=== PATIENT | female | born 1985 | race Caucasian/White ===

== ENCOUNTER → 2017-05-12 | Outpatient (CLI) | payer BC ==
--- NOTE | 2017-05-12 17:38 | US ---
EXAMINATION TYPE: US thyroid st tissue head/neck DATE OF EXAM: 05/12/2017 COMPARISON: 06/04/2016 CLINICAL HISTORY: E04.9 GOITER. GLAND SIZE: Right Lobe: 3.7 x 1.1 x 1.7 cm Overall Parenchyma: homogenous Left Lobe: 3.5 x 1.2 x 1.5 cm Overall Parenchyma: homogeneous Isthmus Thickness: 0.1 cm NODULES RIGHT: # of nodules measured on right: 0 LEFT: # of nodules measured on left: 1 1. 0.5 X 0.3 x 0.3 cm isoechoic mixed nodule at the lower pole with poorly defined margins. This n odule is wide as is tall and shows intranodular vascularity. Prior size: 0.6 x 0.3 x 0.3 cm ISTHMUS: # of nodules measured in the isthmus: 0 Bilateral neck scanned, no evidence of lymphadenopathy. IMPRESSION: No dominant thyroid mass. Small nodule in the left thyroid lobe without adverse change compared to ol d exam. I have a low suspicion of malignancy.
== END | disposition home or self-care (01) ==
LOC: RADUSWWP 16:52
PROVIDERS: ATTEND Internal Medicine
DX: E04.1 Nontoxic single thyroid nodule (principal)
CPT/HCPCS: 76536

== ENCOUNTER 2018-01-18 10:50 | Outpatient (CLI) | payer BC | END 2018-01-18 11:00 | disposition home or self-care (01) | LOC: PTMAIN 10:50 | PROVIDERS: ATTEND Otolaryngology | DX: J37.0 Chronic laryngitis (principal) | CPT/HCPCS: 31579 ==

== ENCOUNTER → 2018-03-25 | Outpatient (CLI) | payer BC ==
--- NOTE | 2018-03-25 13:39 | US ---
EXAMINATION TYPE: US thyroid st tissue head/neck DATE OF EXAM: 03/25/2018 COMPARISON: 05/12/2017 CLINICAL HISTORY: E04.9 NON TOXIC GOITER. GLAND SIZE: Right Lobe: 4.2 x 1.9 x 1.5 cm Overall Parenchyma: homogenous Left Lobe: 4.0 x 1.7 x 1.5 cm Overall Parenchyma: homogeneous Isthmus Thickness: 0.1 cm NODULES RIGHT: # of nodules measured on right: 1 1. 0.6 X 0.4 x 0.4 cm echogenic mixed nodule at the lower pole with well-defined margins; . This n odule shows no intranodular vascularity. Prior size: 0.5 x 0.3 x 0.3 cm LEFT: # of nodules measured on left: 0 ISTHMUS: # of nodules measured in the isthmus: 0 Bilateral neck scanned, no evidence of lymphadenopathy. IMPRESSION: 1. No 1 cm or larger nodules.
== END | disposition home or self-care (01) ==
LOC: RADUSWWP 12:54
PROVIDERS: ATTEND Internal Medicine
DX: E04.1 Nontoxic single thyroid nodule (principal)
CPT/HCPCS: 76536

== ENCOUNTER 2019-02-04 17:43 | Outpatient (CLI) | payer BC ==
[2019-02-04] MEDS ORDERED: SILVER NITRATE APPLICATOR 1 EACH STICK..EA. TOPICAL STA (20:30)
[2019-02-04 21:16] VITALS: BP 124/72; PULSE 76; RESP 18; TEMP 98.6
--- NOTE | 2019-02-04 22:05 | PCN ---
PROCEDURE NOTE OUTPATIENT PROCEDURE NOTE: DATE OF PROCEDURE: 02/04/2019 PROCEDURE: Excision of thrombosed hymeneal skin tag. SURGEON: Michelle Cuenca M.D. ESTIMATED BLOOD LOSS: 3 mL. FLUIDS: Zero. ANESTHESIA: None. INDICATION: This is a 34-year-old white female, 3, para 2-0-0-2, EDC 03/17/2019, at 34-1/7 weeks' gestation. Patient presented to the triage area noting a mass on the vaginal wall that she noticed this afternoon while showering. The mass is tender. It had a small amount of blood present with wiping after urination. She denies recent intercourse. She denies any problems with the . PROCEDURE NOTE: On inspection, there is a thrombosed hymeneal tag at the vaginal vault at 6 o'clock, attached by a very slender slim stalk. Verbal consent is obtained and the patient is requesting removal of the tag. It is therefore prepped with Betadine x3. It is elevated and snipped with a single snip utilizing a sharp sterile scissor. Nitro stick is used at the base for excellent and immediate cauterization. Estimated blood loss 3 mL. The patient experienced immediate pain relief upon completion of this procedure. The tag is shown to the patient and then discarded. The patient will follow up with her primary dry kiln burner in the office as scheduled. She is reminded no intercourse at this time. MMODL / IJN: [id number] /
--- NOTE | 2019-03-08 15:28 | P.MSEPDOC ---
Presenting Problems - Arrival Data Date of Arrival on Unit: 02/04/19 Time of Arrival on Unit: 17:43 Mode of Transport: Ambulatory - Complaint OB-Reason for Admission/Chief Complaint: Other Comment: pt felt something in her vagina while showering Medical History - Information : 3 Para: 2 Term: 2 : 0 Abortions: Spontaneous or Elective: 0 Number of Living Children: 2 - Gestational Age Gestational Age by SERENE (wks/days): 34 Weeks and 1 Days - History Comment: none Review of Systems - Review of Systems Constitutional: No problems Breast: No problems ENT: No problems Cardiovascular: No problems Respiratory: No problems Gastrointestinal: No problems Genitourinary: No problems Musculoskeletal: No problems Neurological: No problems Skin: No problems Vital Signs - Temperature Temperature: 98.6 F Temperature Source: Oral - Pulse Right Supine Brachial Pulse Rate: 76 Pulse Assessment Method: Automatic Cuff - Respirations Respiratory Rate: 18 Oxygen Delivery Method: Room Air - Blood Pressure Right Arm Supine Blood Pressure: 124/72 Blood Pressure Mean: 89 Blood Pressure Source: Automatic Cuff Medical Screen Scoring (Pre) - Cervical Exam Dilation: 0 cm = 0 Membranes: Intact - Uterine Contractions Frequency: > 5 minutes apart = 1 Duration: N/A - Maternal Vital Signs Maternal Temperature: N/A Maternal Blood Pressure: N/A - Assessment - Baby A Baseline FHR: 135 Heart Rate - NICHD Category: Category I (Normal) = 0 NST: Reactive - Total Score - Baby A Total Score - Baby A: 1 - Total Score - Baby B Total Score - Baby B: 1 - Total Score - Baby C Total Score - Baby C: 1 - Level of Risk - Baby A Level of Risk - Baby A: Low (0-5) - Level of Risk - Baby B Level of Risk - Baby B: Low (0-5) - Level of Risk - Baby C Level of Risk - Baby C: Low (0-5) Physician Notification (Pre) - Physician Notified Physician Notified Date: 02/04/19 Physician Notified Time: 18:20 Physician/Practitioner Notifed:: Dr Cuenca Spoke With: Dr Cuenca New Order Received: Yes - Notification Comment Comment: Order to discharge to home, however pt requesting to be seen by a physician. Will wait Physician Notification (Post) - Physician Notified Physician/Practitioner Notified:: Dr Cuenca Disposition - Disposition OB Disposition: Physician follow up in office, Discharge to home Discharge Date: 02/04/19 Discharge Time: 20:55 I agree with the RN Medical Screening Exam: Yes Risk & Benefit of care provided described in d/c instruction: Yes Diagnosis: PELVIC AND PERINEAL PAIN
== END 2019-02-04 20:55 | disposition home or self-care (01) ==
LOC: FBPOP 17:43
PROVIDERS: ATTEND Obstetrics & Gynecology
DX: O26.893 Other specified pregnancy related conditions, third trimester (principal); R10.2 Pelvic and perineal pain; Z3A.34 34 weeks gestation of pregnancy
CPT/HCPCS: 59025; 99213

== ENCOUNTER 2019-02-22 22:42 | Inpatient (IN) | payer BC ==
[2019-02-23] MEDS ORDERED: TERBUTALINE 1 MG/ML VIAL SQ PRN (00:01)
[2019-02-23] MEDS ORDERED: METHYLERGONOVINE 0.2 MG/ML 1 ML AMP IM PRN (00:01)
[2019-02-23] MEDS ORDERED: LIDOCAINE 0.5% (PF) 5 MG/ML (50 ML SDV) SQ PRN (00:01)
[2019-02-23] MEDS ORDERED: OXYTOCIN 10 UNIT/ML 1 ML VIAL IM PRN (00:01)
[2019-02-23] MEDS ORDERED: CARBOPROST TROMETHAMINE 250 MCG/ML 1 ML AMP IM PRN (00:01)
[2019-02-23] MEDS: LACTATED RINGERS 1,000 ML IV SCH ×4 (00:30→20:44)
[2019-02-23 00:59] VITALS: BMI 23.6
[2019-02-23 01:29] LABS: Basophils % (A) 0 %; Eosinophils # (A) 0.1 k/uL (0-0.7); Eosinophils % (A) 1 %; HCT 36.5 % (34.0-46.0); HGB 12.7 gm/dL (11.4-16.0); Lymphocytes % (A) 12 %; MCH 33.3 pg (25.0-35.0); MCHC 34.9 g/dL (31.0-37.0); MCV 95.6 fL (80.0-100.0); Mean Platelet Volume 8.3; Monocytes # (A) 0.8 k/uL (0-1.0); Monocytes % (A) 9 %; Neutrophils % (A) 75 %; Platelet Count 192 k/uL (150-450); RBC 3.81 m/uL (3.80-5.40)
[2019-02-23] MEDS ORDERED: OXYTOCIN 30 UNITS/500 ML NS 30 UNIT in SALINE 1 500ML.BAG IV SCH (02:30)
[2019-02-23] MEDS ORDERED: CITRIC ACID-SODIUM CITRATE 15 ML CUP PO ONE (07:38)
[2019-02-23] MEDS ORDERED: MORPHINE SULFATE (PF) 0.3 MG/0.3 ML SYR ONE (07:49)
[2019-02-23] MEDS ORDERED: DEXAMETHASONE SOD PHOS (MDV) 100 MG/10 ML VIAL ONE (07:49)
[2019-02-23] MEDS ORDERED: OXYTOCIN 10 UNIT/ML 1 ML VIAL ONE (07:49)
[2019-02-23] MEDS ORDERED: ONDANSETRON 4 MG/2 ML VIAL ONE (07:49)
[2019-02-23] MEDS ORDERED: ceFAZolin 1,000 MG VIAL ONE (07:49)
[2019-02-23] MEDS ORDERED: PHENYLEPHRINE-0.9% NACL SYG 1 MG/10 ML SYRINGE ONE (07:49)
[2019-02-23] MEDS ORDERED: NALBUPHINE 10 MG/ML (1 ML AMP) ONE (07:49)
[2019-02-23] MEDS ORDERED: diphenhydrAMINE 50 MG/ML 1 ML VIAL ONE (07:49)
[2019-02-23] MEDS ORDERED: ONDANSETRON 4 MG/2 ML VIAL IVP PRN ×2 (08:40→08:46)
[2019-02-23] MEDS ORDERED: NALBUPHINE 10 MG/ML (1 ML AMP) IV PRN (08:40)
[2019-02-23] MEDS ORDERED: NALOXONE 0.4 MG/ML 1 ML VIAL IV PRN ×2 (08:40→08:46)
[2019-02-23] MEDS ORDERED: diphenhydrAMINE 50 MG/ML 1 ML VIAL IVP PRN ×3 (08:40→08:46)
[2019-02-23] MEDS ORDERED: HYDROmorphone 0.5 MG/0.5 ML SYRINGE IVP PRN (08:40)
--- NOTE | 2019-02-23 08:44 | P.HPOB ---
History of Present Illness H&P Date: 02/23/19 Chief Complaint: Vaginal bleeding This is a 34-year-old 3 para 2002 woman who has an estimated due date of 03/17/2019 based on first trimester ultrasound. She presents at 36-6/7 weeks gestation having had a gush of bloody fluid at approximately 10 PM. She been intermittently crampy for the last 24 hours. She had a recent visit on the early in the day in which her cervix was checked. On evaluation she was found to have some on the watery bloody vaginal discharge that was amnio sure positive. Her cervix was 2+ centimeters dilated 60% effaced with presenting part high. She was therefore admitted. She was not actively nilton. has been otherwise uncomplicated. Obstetric history is significant for 2 previous normal spontaneous vaginal deliveries. Laboratory data: Blood type A+, antibody screen negative, rubella immune, VDRL nonreactive, hepatitis B surface antigen negative, HIV negative, gonorrhea and clinic cultures negative, group B strep negative, diabetes screening within normal limits. Review of Systems All systems: negative Past Medical History Past Medical History: No Reported History Additional Past Medical History / Comment(s): 2 History of Any Multi-Drug Resistant Organisms: None Reported Past Surgical History: Adenoidectomy, Tonsillectomy Past Anesthesia/Blood Transfusion Reactions: No Reported Reaction Past Psychological History: Anxiety Smoking Status: Never smoker Past Alcohol Use History: None Reported Past Drug Use History: None Reported - Past Family History Father Family Medical History: Hyperlipidemia, Hypertension Medications and Allergies Home Medications Medication Instructions Recorded Confirmed Type Pnv No.95/Ferrous Fum/Folic AC 1 each PO ONCE 02/04/19 02/22/19 History [ Multivitamin Tablet] Allergies Allergy/AdvReac Type Severity Reaction Status Date / Time Fish Containing Products Allergy Rash/Hives Verified 02/23/19 00:45 [Fish] Exam Vital Signs Temp Pulse Resp BP Pulse Ox 02/23/19 00:00 98.3 F 96 16 135/76 99 02/22/19 22:53 98.3 F 96 16 135/76 99 Intake and Output 02/22/19 02/23/19 02/23/19 22:59 06:59 14:59 Other: # Voids 2 Weight 62.596 kg Upon my initial evaluation the patient is resting comfortably. She is complaining of some mild cramping but no contraction activity. She was and visibly gravid with fundal height operative for gestational age. On cervical examination the cervix is 2-3 cm dilated very thick with no obvious presenting part. There is concern for the positioning therefore hand-held bedside ultrasound was performed and breech presentation with vertex to the maternal upper left abdomen was confirmed. heart tones are reassuring by external monitoring and she is irregularly nilton. Results Result Diagrams: 02/23/19 00:28 Assessment and Plan (1) 37 weeks gestation of Current Visit: Yes Status: Acute Code(s): Z3A.37 - 37 WEEKS GESTATION OF SNOMED Code(s): 29246184 (2) Breech presentation Current Visit: Yes Status: Acute Code(s): O32.1XX0 - MATERNAL CARE FOR BREECH PRESENTATION, UNSP SNOMED Code(s): 6443174 Plan: 34-year-old 3 para 2002 woman who presents with spontaneous rupture of membranes at 30-6/7 weeks' gestation. Upon initial admission breech was not initially detected and Pitocin augmentation of labor was initiated. Upon my initial evaluation breech presentation was confirmed. Therefore Pitocin is discontinued. Patient remains 2-3 cm dilated. The patient and her are counseled extensively regarding indication for section delivery. The risks of the procedure reviewed with them and include but are not limited to bleeding, transfusion, injury to maternal bowel, bladder, uterus or other structures and/or injury. The patient and her asked questions and voices understanding. Consent is obtained. The anesthesiologist has been on notified and we'll proceed to primary low transverse section.
[2019-02-23] MEDS ORDERED: HYDROmorphone 1 MG/ML 1 ML SYRINGE IVP PRN (08:45)
[2019-02-23] MEDS ORDERED: HYDROcodone/APAP 5-325MG 1 EACH TAB PO PRN (08:46)
[2019-02-23] MEDS ORDERED: ACETAMINOPHEN TAB 325 MG TAB PO PRN (08:46)
[2019-02-23] MEDS ORDERED: METOCLOPRAMIDE 5 MG/ML 2 ML VIAL IVP PRN (08:46)
[2019-02-23] MEDS ORDERED: diphenhydrAMINE 50 MG CAP PO PRN (08:46)
[2019-02-23] MEDS ORDERED: diphenhydrAMINE 25 MG CAP PO PRN (08:46)
[2019-02-23] MEDS ORDERED: KETOROLAC 30 MG/ML 1 ML VIAL IVP PRN (08:46)
[2019-02-23] MEDS ORDERED: ZOLPIDEM 5 MG TAB PO PRN (08:46)
--- NOTE | 2019-02-23 08:46 | P.OP ---
Date of Procedure: 02/23/19 Preoperative Diagnosis: Breech presentation Rupture of membranes at 36-6/7 weeks' Postoperative Diagnosis: Same Procedure(s) Performed: Primary low transverse section Anesthesia: spinal Surgeon: Aleida Rivera Refinery Pipeline Operator #1: Char Bowen Estimated Blood Loss (ml): 500 IV fluids (ml): 1,000 Urine output (ml): 200 Pathology: none sent Condition: stable Disposition: PACU Operative Findings: Female in the yoli breech presentation with Apgars of 9 at 1 minute and 9 at 5 minutes weighing 6 lbs. 7 oz., 29 and 30 g. Normal-appearing bilateral fallopian tubes ovaries and uterus. Description of Procedure: After the patient was met preoperatively and all questions were answered, she was taken to the operating room where spinal anesthetic was administered without incident. She was then positioned, prepped and draped in the dorsal supine position with a leftward tilt. Moreno catheter was placed. After anesthetic was confirmed adequate, a low transverse skin incision was made. This was carried down to the underlying fascia both sharply and with the electrocautery. The fascia was then incised in the midline and extended bilaterally with the Andrade scissors. The superior aspect of the fascial incision was elevated and the underlying rectus muscles dissected off sharply and with the electrocautery. The inferior aspect of the fascial incision was also elevated and the underlying rectus muscles dissected off sharply. The muscles were adherent in the midline. These were bluntly and the peritoneum was tented up with hemostats. The peritoneum was entered sharply with the Metzenbaum scissors. The peritoneal incision was extended inferiorly and superiorly with good visualization of the bladder. The bladder blade was placed. The vesicouterine peritoneum was identified, tented up and entered sharply, the bladder flap was created both sharply and digitally. A low transverse uterine incision was then made sharply and carried down to the underlying amniotic membranes. Membranes were ruptured and clear fluid was noted. The uterine incision was extended bilaterally bluntly. The infant's breech was delivered. Blue towels utilized to deliver the rest the infant to the level of the scapula. Arms were delivered, head was flexed and the rest the infant was delivered onto the field. The nose and mouth were bulb suctioned. The rest of the was delivered onto the field without difficulty. And cut and the infant was taken to the warmer. An intact, three-vessel cord placenta was then manually removed and the uterus was exteriorized. The uterus was cleared of all clot and debris. The uterine incision was delineated with Magaña clamps. The uterine incision was then closed in a running locked fashion with 0 Vicryl suture. Second imbricating layer of the same suture was placed. The uterus was then returned to the abdomen and the gutters were cleared of all clot and debris. The uterine incision was reinspected and Bovie electrocautery was utilized were necessary for hemostasis. The fascial edges, peritoneal edges and rectus muscles were inspected and Bovie electrocautery utilized were necessary for hemostasis. The fascia was then closed in a running fashion with 0 Vicryl suture. The subcuticular tissue was copiously suction irrigated and Bovie electrocautery utilized were necessary for hemostasis. 3-0 Vicryl suture was utilized to reapproximate the subcuticular tissue. The skin was then closed in a subcutaneous fashion with 4-0 Vicryl suture. All counts reported to me as correct by the operating room staff at the end of the procedure. The patient received antibiotics preoperatively and Pitocin following cord clamp. Mother and infant were both transported from the room in stable condition.
[2019-02-23] MEDS: SENNOSIDES-DOCUSATE SODIUM 1 EACH TAB PO SCH (20:43)
[2019-02-24 06:02] VITALS: RESP 16
--- NOTE | 2019-02-24 07:57 | P.PNOBGPC ---
Subjective - Subjective Principal diagnosis: Status post section Interval history: Feeling well overnight, breast-feeding successfully, pain well controlled Patient reports: Reports appetite normal, Reports voiding normally, Reports pain well controlled, Reports ambulating normally, Denies dizzy ambulation, Denies nauseated : doing well, nursing well Objective - Vital Signs Latest vital signs: Vital Signs Temp Pulse Resp BP Pulse Ox 02/24/19 06:00 16 02/24/19 04:00 97.7 F 73 14 105/59 98 02/24/19 02:22 14 02/24/19 02:01 14 02/24/19 00:00 98.2 F 71 14 90/61 98 02/23/19 22:00 16 98 02/23/19 20:00 98.1 F 65 14 108/64 98 02/23/19 17:00 98.0 F 97 02/23/19 16:00 99.1 F 54 L 16 102/68 02/23/19 10:45 98.8 F 105 H 15 107/63 98 02/23/19 10:15 77 14 117/73 99 02/23/19 09:45 77 14 110/65 98 02/23/19 09:40 98 02/23/19 09:30 98.1 F 102 H 14 112/56 98 02/23/19 09:19 14 02/23/19 09:00 98 14 118/57 98 02/23/19 08:55 98 02/23/19 08:45 97.6 F 96 14 116/66 97 02/23/19 08:40 14 98 Intake and Output 02/23/19 02/24/19 02/24/19 22:59 06:59 14:59 Output Total 1800 Balance -1800 Output: Urine 1800 Other: # Voids 1 1 - Exam Extremities: Present: normal. Absent: edema Abdomen: Present: normal appearance, soft, distention, tenderness Incision: Present: normal, dry, intact. Absent: erythematous Uterus: Present: normal, firm Assessment and Plan (1) 37 weeks gestation of Current Visit: Yes Status: Acute Code(s): Z3A.37 - 37 WEEKS GESTATION OF SNOMED Code(s): 61017417 (2) Breech presentation Current Visit: Yes Status: Acute Code(s): O32.1XX0 - MATERNAL CARE FOR BREECH PRESENTATION, UNSP SNOMED Code(s): 1675479 (3) Spontaneous rupture of membranes Current Visit: Yes Status: Acute Code(s): PQF5335 - SNOMED Code(s): 697517670 (4) S/P section Current Visit: Yes Status: Acute Code(s): Z98.891 - HISTORY OF UTERINE SCAR FROM PREVIOUS SURGERY SNOMED Code(s): 623141855 Plan: Postop day 1 status post primary low-transverse section for breech presentation. Recovering well, labs pending, routine care. Anticipate discharge home tomorrow.
[2019-02-24] MEDS: SENNOSIDES-DOCUSATE SODIUM 1 EACH TAB PO SCH (07:59)
[2019-02-24] MEDS: IBUPROFEN 600 MG TAB PO PRN ×3 (07:59→20:09)
[2019-02-24 08:10] LABS: Basophils % (A) 0 %; Eosinophils # (A) 0.1 k/uL (0-0.7); Eosinophils % (A) 1 %; HCT 33.7 % (34.0-46.0); HGB 11.2 gm/dL (11.4-16.0); Lymphocytes # (A) 1.1 k/uL (1.0-4.8); Lymphocytes % (A) 12 %; MCH 32.1 pg (25.0-35.0); MCHC 33.1 g/dL (31.0-37.0); MCV 96.8 fL (80.0-100.0); Mean Platelet Volume 7.9; Monocytes # (A) 0.5 k/uL (0-1.0); Monocytes % (A) 5 %; Neutrophils # (A) 7.4 k/uL (1.3-7.7); Neutrophils % (A) 81 %; Platelet Count 199 k/uL (150-450); RBC 3.48 m/uL (3.80-5.40); RDW 12.9 % (11.5-15.5); WBC 9.2 k/uL (3.8-10.6)
--- NOTE | 2019-02-24 08:14 | P.PN ---
Progress Note - Text Date: 02/24/2019 Time: 712 The patient is status post section Vital signs stable VAS: 0-10 Patient has no complaints of pain. The patient incurred some minimal itching yesterday, this itching is now subsiding. Pain meds to be managed by service.
[2019-02-25] MEDS: IBUPROFEN 600 MG TAB PO PRN ×2 (01:53→08:13)
[2019-02-25] MEDS: SENNOSIDES-DOCUSATE SODIUM 1 EACH TAB PO SCH ×2 (03:11→08:15)
[2019-02-25 08:42] VITALS: BP 99/60; PULSE 86; TEMP 97.8
--- NOTE | 2019-02-25 09:11 | P.DS ---
Providers Date of admission: 02/22/19 23:39 Expected date of discharge: 02/25/19 Attending physician: Lula De Jesus Primary care physician: Stated None - Discharge Diagnosis(es) (1) 37 weeks gestation of Current Visit: Yes Status: Acute (2) Breech presentation Current Visit: Yes Status: Acute (3) Spontaneous rupture of membranes Current Visit: Yes Status: Acute (4) S/P section Current Visit: Yes Status: Acute Hospital Course: This is a 34 year old 3 now para 3 woman who presented at 36-6/7 weeks' gestation with vaginal bleeding and spontaneous rupture of membranes. She was admitted and Pitocin augmentation of labor was initiated. She was however discovered to be in the breech presentation therefore she ultimately underwent a primary low transverse section. She was delivered of a liveborn female infant with Apgars of 9 at 1 minute and 9 at 5 minutes weighing 6 lbs. 7 oz. in the yoli breech presentation. Please see the operative report for details. The patient's postoperative course was unremarkable. By the morning of postoperative day #1 she was ambulating and voiding without difficulty after the Moreno catheter was removed. Her postop day 1 hemoglobin was 11.2. She had minimal lochia. By postop day #2 she continued to do very well. Her incision appeared to be well healing with some ecchymoses at the lower aspect. She had scant lochia and was breast-feeding successfully. Her vital signs were stable. She was therefore discharged home with routine instructions for ope rative care and follow-up. Procedures: Primary low transverse section Patient Condition at Discharge: Good Plan - Discharge Summary New Discharge Prescriptions: New Ibuprofen [Motrin] 600 mg PO Q6HR PRN tab PRN Reason: Mild Pain Or Fever >= 100.5 No Action Pnv No.95/Ferrous Fum/Folic AC [ Multivitamin Tablet] 1 each PO ONCE Discharge Medication List Pnv No.95/Ferrous Fum/Folic AC [ Multivitamin Tablet] 1 each PO ONCE 02/04/19 [History] Ibuprofen [Motrin] 600 mg PO Q6HR PRN tab 02/25/19 [Rx] Follow up Appointment(s)/Referral(s): Lula De Jesus DO [Doctor of Osteopathic Medicine] - 2 Weeks Activity/Diet/Wound Care/Special Instructions: Follow-up in 2 weeks after surgery in the office. Call the office with any concerning signs or symptoms including fever greater than 101, severe abdominal pain, heavy vaginal bleeding, signs of wound infection, increased swelling or redness of the lower extremities, signs of depression. No driving for 2 weeks after surgery. No heavy lifting or vigorous activity until reevaluated in the office. No intercourse for 6 weeks after delivery. Discharge Disposition: HOME SELF-CARE
== END 2019-02-25 11:20 | disposition home or self-care (01) | DRG 788 ==
LOC: FBPOP 22:42 → 4FBP 23:39
PROVIDERS: ADMIT Obstetrics & Gynecology; ATTEND Obstetrics & Gynecology Obstetrics
PROC: 10D00Z1 Extraction of Products of Conception, Low, Open Approach (ICD-10-PCS; principal; 2019-02-23 07:34)
DX: O32.1XX0 Maternal care for breech presentation, not applicable or unspecified (principal); O99.344 Other mental disorders complicating childbirth; F41.9 Anxiety disorder, unspecified; Z37.0 Single live birth; Z3A.37 37 weeks gestation of pregnancy; Z91.013 Allergy to seafood; Z82.49 Family history of ischemic heart disease and other diseases of the circulatory system
CPT/HCPCS: 59025; 84112; 85025; 86850; 86900; 86901; 99213

== ENCOUNTER → 2019-04-14 | Outpatient (CLI) | payer BC ==
--- NOTE | 2019-04-14 11:57 | USB ---
Reason for exam: follow-up at short interval from prior study. Physical Findings: Nurse Summary: all soft, nodular, movable (nurse ts). US Breast BILAT Right complete breast ultrasound includes all four quadrants, the retroareolar region and axilla. Finding demonstrates ductal ectasia at 7 o'clock, 8 o'clock and the posterior nipple. Left complete breast ultrasound includes all four quadrants, the retroareolar region and axilla. Finding demonstrates a 0.6 x 0.6 x 0.5cm oval, cystic lesion at 2 o'clock with solid component/debris and a 1.4 x 1.6 x 0.8cm oval node at the axilla. These results were verbally communicated with the patient and result sheet given to the patient on 04/14/19. ASSESSMENT: Probably benign, BI-RAD 3 RECOMMENDATION: Ultrasound of the left breast in 3 months.
== END | disposition home or self-care (01) ==
LOC: RADUSWWP 10:10
PROVIDERS: ATTEND Obstetrics & Gynecology Obstetrics
DX: R92.8 Other abnormal and inconclusive findings on diagnostic imaging of breast (principal)

== ENCOUNTER → 2019-08-19 | Outpatient (CLI) | payer BC ==
[~2019-08-19] MED LIST: diphenhydrAMINE 50 MG/ML 1 ML VIAL ONE
--- NOTE | 2019-08-19 10:42 | CT ---
EXAMINATION TYPE: CT soft tissue neck w con DATE OF EXAM: 08/19/2019 COMPARISON: None HISTORY: neck mass CT DLP: 237 mGycm CONTRAST: Patient injected with 100 mL of Isovue 300. TECHNIQUE: Axial images at 3 mm thick sections. Reconstructed images in the coronal plane and sagitt al plane are reviewed. FINDINGS: Limited CT sections are obtained the lung apices. The lung apices appear clear. CT neck: The torus tubarius and fossa of Rosenmuller are normal. Dry Cleaning Manager spaces are normal. Para nasal sinuses and mastoid air cells are clear. Parotid glands appear normal and symmetrical. Submandibular glands, are normal. Parapharyngeal spac es are normal. No suspicious adenopathy is evident. The hypopharynx appears within normal limits. Vocal cord level appear symmetrical. Thyroid as visualized is normal. Superior to the thyroid and at the level marked by the BB is a hypodense structure measuring 1.4 cm A P by 1.6 cm transverse by 2.2 cm cranial caudal and measuring 29 Hounsfield units. This begins below the hyoid. Consider a thyroglossal duct cyst within the differential. Osseous structures are normal. IMPRESSIONS: 1. Suspected thyroglossal duct cyst on the midline at the level marked by the BB.
== END | disposition home or self-care (01) ==
LOC: RADCTMAIN 07:04
PROVIDERS: ATTEND Otolaryngology
DX: R22.1 Localized swelling, mass and lump, neck (principal)
CPT/HCPCS: 70491; J1200; Q9967

== ENCOUNTER → 2020-05-09 | Outpatient (CLI) | payer BC ==
--- NOTE | 2020-05-09 09:23 | USB ---
Reason for exam: clinical finding. Indicated problem(s): lump or thickening in the left breast. Physical Findings: Nurse did not find any significant physical abnormalities on exam. US Breast LT Left complete breast ultrasound includes all four quadrants, the retroareolar region and axilla. Finding demonstrates a 0.4 x 0.3 x 0.3cm vascular lesion at 2 o'clock, appearance of lymph node. These results were verbally communicated with the patient and result sheet given to the patient on 05/09/20. ASSESSMENT: Probably benign, BI-RAD 3 RECOMMENDATION: Ultrasound of the left breast in 6 months.
== END | disposition home or self-care (01) ==
LOC: RADUSWWP 06:57
PROVIDERS: ATTEND Obstetrics & Gynecology Obstetrics
DX: N63.20 Unspecified lump in the left breast, unspecified quadrant (principal)

== ENCOUNTER → 2020-11-08 | Outpatient (CLI) | payer BC ==
--- NOTE | 2020-11-08 09:33 | USB ---
Reason for exam: follow-up at short interval from prior study. Physical Findings: Nurse did not find any significant physical abnormalities on exam. US Breast Limited LT Left limited breast ultrasound including focal area of concern, retroareolar and axilla demonstrates no cystic or solid lesion seen. These results were verbally communicated with the patient and result sheet given to the patient on 11/08/20. ASSESSMENT: Negative, BI-RAD 1 RECOMMENDATION: Routine screening mammogram of both breasts at age 42.
== END | disposition home or self-care (01) ==
LOC: RADUSWWP 07:44
PROVIDERS: ATTEND Obstetrics & Gynecology Obstetrics
DX: R92.8 Other abnormal and inconclusive findings on diagnostic imaging of breast (principal)

== ENCOUNTER 2021-07-16 06:05 | Inpatient (IN) | payer BC ==
[2021-07-16] MEDS ORDERED: CARBOPROST TROMETHAMINE 250 MCG/ML 1 ML AMP IM PRN (06:16)
[2021-07-16] MEDS ORDERED: METHYLERGONOVINE 0.2 MG/ML 1 ML AMP IM PRN (06:16)
[2021-07-16] MEDS ORDERED: LIDOCAINE 0.5% (PF) 5 MG/ML (50 ML SDV) SQ PRN (06:16)
[2021-07-16] MEDS ORDERED: OXYTOCIN 10 UNIT/ML 1 ML VIAL IM PRN (06:16)
[2021-07-16] MEDS ORDERED: TERBUTALINE 1 MG/ML VIAL SQ PRN (06:16)
[2021-07-16] MEDS ORDERED: OXYTOCIN 30 UNITS/500 ML NS 30 UNIT in SALINE 1 500ML.BAG IV SCH ×2 (06:30→16:45)
[2021-07-16 06:48] LABS: Basophils % (A) 0 %; Eosinophils # (A) 0.1 k/uL (0-0.7); Eosinophils % (A) 1 %; HCT 35.8 % (34.0-46.0); HGB 12.4 gm/dL (11.4-16.0); Lymphocytes # (A) 1.1 k/uL (1.0-4.8); Lymphocytes % (A) 16 %; MCH 32.8 pg (25.0-35.0); MCHC 34.7 g/dL (31.0-37.0); MCV 94.5 fL (80.0-100.0); Mean Platelet Volume 8.2; Monocytes # (A) 0.4 k/uL (0-1.0); Monocytes % (A) 6 %; Neutrophils % (A) 75 %; Platelet Count 233 k/uL (150-450); RBC 3.79 m/uL (3.80-5.40); RDW 12.5 % (11.5-15.5); WBC 6.6 k/uL (3.8-10.6)
[2021-07-16] MEDS ORDERED: BUTORPHANOL 1 MG/ML 1 ML VIAL IV PRN (07:55)
--- NOTE | 2021-07-16 07:55 | P.HPOB ---
History of Present Illness H&P Date: 07/16/21 Chief Complaint: IUP @39 1/7 weeks, this is a 36-year-old 103 at 39 and one sevenths weeks. Estimated due date 07/22/21. Patient presents for induction of labor. Patient has been receiving routine care with myself which has been essentially uncomplicated. Patient does have a prior history of a primary at 36 weeks for breech presentation, rupture of membranes. Patient was noted vertex presentation by ultrasound yesterday. Patient notes good movement, denies vaginal bleeding, loss of fluid. Patient has a blood type of A+, rubella status immune, Hepatitis B surface antigen negative, HIV negative, RPR nonreactive, group beta strep cultures negative. Review of Systems Constitutional: Denies chills, Denies fatigue, Denies fever Ears, nose, mouth and throat: Denies headache Cardiovascular: Denies leg edema Respiratory: Denies dyspnea Gastrointestinal: Denies constipation, Denies diarrhea, Denies nausea, Denies vomiting Genitourinary: Reports Past Medical History Past Medical History: No Reported History Additional Past Medical History / Comment(s): 2 History of Any Multi-Drug Resistant Organisms: None Reported Past Surgical History: Adenoidectomy, Tonsillectomy Past Anesthesia/Blood Transfusion Reactions: No Reported Reaction Past Psychological History: Anxiety Smoking Status: Never smoker Past Alcohol Use History: None Reported Past Drug Use History: None Reported - Past Family History Father Family Medical History: Hyperlipidemia, Hypertension Medications and Allergies Home Medications Medication Instructions Recorded Confirmed Type Pnv No.95/Ferrous Fum/Folic AC 1 each PO ONCE 02/04/19 07/16/21 History [ Multivitamin Tablet] Sertraline [Zoloft] 50 mg PO DAILY 07/16/21 07/16/21 History Allergies Allergy/AdvReac Type Severity Reaction Status Date / Time Fish Containing Products Allergy Rash/Hives Verified 08/19/19 08:19 [Fish] Iodinated Contrast Media Allergy Rash/Hives Verified 07/16/21 07:09 Exam Osteopathic Statement: *. No significant issues noted on an osteopathic structural exam other than those noted in the History and Physical/Consult. Vital Signs Temp Pulse Resp BP Pulse Ox 07/16/21 06:16 98.5 F 76 16 120/73 100 Intake and Output 07/15/21 07/16/2121 22:59 06:59 14:59 Other: Weight 63.049 kg targeted physical exam is performed in this date in general this is a well-nou rished well-developed female in no acute distress, breathing is noted to be nonlabored, heart has regular rate and rhythm, abdomen is gravid and appropriate for gestational age, on cervical exam she is 3/50/-2 station, amniotomy is performed and clear fluid was obtained. heart tones are noted to be category 1 and she is nilton irregularly. Results Result Diagrams: 07/16/21 06:30 Abnormal Lab Results - Last 24 Hours (Table) 07/16/21 Range/Units 06:30 RBC 3.79 L (3.80-5.40) m/uL Assessment and Plan (1) Term Current Visit: Yes Status: Acute Code(s): Z34.90 - ENCNTR FOR SUPRVSN OF NORMAL , UNSP, UNSP TRIMESTER SNOMED Code(s): 05044679 (2) H/O section Current Visit: Yes Status: Acute Code(s): Z98.891 - HISTORY OF UTERINE SCAR FROM PREVIOUS SURGERY SNOMED Code(s): 400057144 Plan: this 36-year-old G4 P to 103 at 39 and one sevenths weeks presents for elective induction of labor. Patient is admitted and Pitocin induction of labor is begun per hospital protocol. This patient does have a history of a prior for continued to breech presentation and premature rupture of membranes. We will monitor Pitocin dosage closely, plan to keep it around 10 milliunits. Patient is offered epidural for anesthesia during the labor process. She will consider. Anticipate spontaneous vaginal delivery later today.
[2021-07-16] MEDS: LACTATED RINGERS 1,000 ML IV SCH ×4 (08:06→16:38)
[2021-07-16] MEDS ORDERED: SERTRALINE 50 MG TAB PO SCH (09:00)
[2021-07-16] MEDS ORDERED: PRENATAL VIT-IRON-FOLIC ACID 1 EACH CAP PO SCH (09:00)
[2021-07-16] MEDS ORDERED: fentaNYL (PF) 50 MCG/ML 5 ML AMP ONE (10:29)
[2021-07-16] MEDS ORDERED: ROPIVACAINE 5MG/ML 20ML VIAL ONE (10:29)
[2021-07-16] MEDS ORDERED: SODIUM CHLORIDE 0.9% 100 ML BAG ONE (10:29)
[2021-07-16] MEDS ORDERED: LANOLIN CREAM 5 GM TUBE TOPICAL PRN (16:32)
[2021-07-16] MEDS ORDERED: HYDROCORTISONE 2.5% RECTAL CREAM 30 GM TUBE RECTAL PRN (16:32)
[2021-07-16] MEDS ORDERED: diphenhydrAMINE 50 MG/ML 1 ML VIAL IVP PRN ×2 (16:32)
[2021-07-16] MEDS ORDERED: diphenhydrAMINE 50 MG CAP PO PRN (16:32)
[2021-07-16] MEDS ORDERED: BENZOCAINE/MENTHOL SPRAY 1 GM/SPRAY AEROSOL TOPICAL PRN (16:32)
[2021-07-16] MEDS ORDERED: ZOLPIDEM 5 MG TAB PO PRN (16:32)
[2021-07-16] MEDS ORDERED: ACETAMINOPHEN TAB 325 MG TAB PO PRN (16:32)
[2021-07-16] MEDS ORDERED: SIMETHICONE 80 MG CHEWABLE PO PRN (16:32)
[2021-07-16] MEDS ORDERED: diphenhydrAMINE 25 MG CAP PO PRN (16:32)
--- NOTE | 2021-07-16 16:43 | P.PROBDLV ---
Vaginal Delivery Note - . Vaginal Delivery Note: 36-year-old at 39 and one sevenths weeks that presented to labor and delivery for induction of labor. Patient was admitted to labor and delivery and Pitocin induction of labor was begun per hospital protocol. Of note patient's last delivery was a delivery secondary to breech presentation and rupture of membranes at 36 weeks. Patient elected trial of labor after with this current . Patient underwent amniotomy once regular contractions were noted, clear fluid was noted initially, meconium-stained fluid was appreciated later. Patient progressed through labor eventually becoming uncomfortable and did request epidural placement. Epidural was placed without difficulty by the anesthesia department. Patient progressed to complete began pushing and had a normal spontaneous vaginal delivery of a viable female infant at 1611, weight of 6 lbs. 11 oz., Apgars of 9 and 9 at one and 5 minutes respectively. did have a loose nuchal cord which was delivered through. after two-minute delayed the umbilical cord was doubly clamped and cut and the infant was handed to the maternal abdomen. The placenta was then delivered spontaneously intact with a three-vessel cord being noted. On inspection the patient's vaginal vault a first-degree vaginal laceration was appreciated. the laceration site was then instilled with lidocaine repaired in the usual fashion with 3-0 repeat. Hemostasis was appreciated after repair. The uterus was noted to be firm and below the umbilicus after delivery of the placenta. Estimated blood loss 300 mL. Patient and infant tolerated delivery well and are resting comfortably, all counts were noted be correct 2 at the end of the delivery.
[2021-07-16 19:07] LABS: Glucose,Whole Blood 121 mg/dL (75-99)
[2021-07-16] MEDS: SENNOSIDES-DOCUSATE SODIUM 1 EACH TAB PO SCH (20:05)
[2021-07-16 20:36] VITALS: RESP 16
[2021-07-16] MEDS: IBUPROFEN 600 MG TAB PO SCH (22:31)
[2021-07-17 06:41] LABS: Basophils % (A) 0 %; Eosinophils # (A) 0.1 k/uL (0-0.7); Eosinophils % (A) 1 %; HCT 31.4 % (34.0-46.0); HGB 10.6 gm/dL (11.4-16.0); Lymphocytes # (A) 1.3 k/uL (1.0-4.8); Lymphocytes % (A) 12 %; MCHC 33.7 g/dL (31.0-37.0); Mean Platelet Volume 8.1; Monocytes # (A) 0.5 k/uL (0-1.0); Monocytes % (A) 4 %; Neutrophils # (A) 8.7 k/uL (1.3-7.7); Neutrophils % (A) 81 %; Platelet Count 215 k/uL (150-450); RBC 3.21 m/uL (3.80-5.40); RDW 12.6 % (11.5-15.5); WBC 10.6 k/uL (3.8-10.6)
[2021-07-17] MEDS: IBUPROFEN 600 MG TAB PO SCH (07:01)
[2021-07-17] MEDS: SENNOSIDES-DOCUSATE SODIUM 1 EACH TAB PO SCH (08:41)
--- NOTE | 2021-07-17 08:54 | P.DS ---
Providers Date of admission: 07/16/21 06:05 Expected date of discharge: 07/17/21 Attending physician: Lula De Jesus Primary care physician: Jack Mann MD - Discharge Diagnosis(es) (1) Term Current Visit: Yes Status: Acute (2) H/O section Current Visit: Yes Status: Acute (3) Status post normal vaginal delivery Current Visit: Yes Status: Acute (4) Obstetric vaginal laceration with first degree perineal laceration Current Visit: Yes Status: Acute Hospital Course: This is a 36-year-old 4 now para 10/02/2001 that presented to labor and delivery at 39 one sevenths weeks for elective induction of labor. Patient has a history of a prior secondary to breech presentation and rupture of membranes at 36 weeks. Patient elected trial of labor after . Patient was admitted to labor and delivery and Pitocin induction of labor was begun. Patient pressed to labor amniotomy was performed and clear fluid was obtained initially, thin meconium-stained fluid was noted throughout the labor process. Patient became uncomfortable and did request epidural placement epidural was placed without difficulty by the anesthesia department. Patient made slow progress to complete began pushing and had a normal spontaneous vaginal delivery of a viable female at 1611, weight of 6 lbs. 11 oz. and Apgars of 9 and 9 at one and 5 minutes respectively. Patient did sustain a first-degree vaginal laceration which was repaired in the usual fashion. Patient has done well . She is ambulating and voiding without difficulty. Tolerating a regular diet without nausea or vomiting. She states she would like discharge home at 24 hours if infant is discharged along with her. Patient Condition at Discharge: Good Plan - Discharge Summary Discharge Rx Participant: No New Discharge Prescriptions: No Action Pnv No.95/Ferrous Fum/Folic AC [ Multivitamin Tablet] 1 each PO ONCE Sertraline [Zoloft] 50 mg PO DAILY Discharge Medication List Pnv No.95/Ferrous Fum/Folic AC [ Multivitamin Tablet] 1 each PO ONCE 02/04/19 [History] Sertraline [Zoloft] 50 mg PO DAILY 07/16/21 [History] Follow up Appointment(s)/Referral(s): Lula De Jesus DO [Doctor of Osteopathic Medicine] - 4 Weeks Patient Instructions/Handouts: Vaginal Delivery (DC), Vaginal Delivery (GEN)
[2021-07-17 16:14] VITALS: BP 96/62; PULSE 81; TEMP 98.6
== END 2021-07-17 17:20 | disposition home or self-care (01) | DRG 807 ==
LOC: 4FBP 06:05
PROVIDERS: ADMIT Obstetrics & Gynecology Obstetrics; ATTEND Obstetrics & Gynecology Obstetrics
PROC: 10E0XZZ Delivery of Products of Conception, External Approach (ICD-10-PCS; principal; 2021-07-16)
PROC: 0HQ9XZZ Repair Perineum Skin, External Approach (ICD-10-PCS; 2021-07-16)
PROC: 10907ZC Drainage of Amniotic Fluid, Therapeutic from Products of Conception, Via Natural or Artificial Opening (ICD-10-PCS; 2021-07-16)
PROC: 3E033VJ Introduction of Other Hormone into Peripheral Vein, Percutaneous Approach (ICD-10-PCS; 2021-07-16)
PROC: 4A0HXCZ Measurement of Products of Conception, Cardiac Rate, External Approach (ICD-10-PCS; 2021-07-16)
DX: O34.219 Maternal care for unspecified type scar from previous cesarean delivery (principal); Z37.0 Single live birth; O70.0 First degree perineal laceration during delivery; O77.0 Labor and delivery complicated by meconium in amniotic fluid; F41.9 Anxiety disorder, unspecified; O69.81X0 Labor and delivery complicated by cord around neck, without compression, not applicable or unspecified; O99.344 Other mental disorders complicating childbirth; Z3A.39 39 weeks gestation of pregnancy; Z79.899 Other long term (current) drug therapy; Z87.59 Personal history of other complications of pregnancy, childbirth and the puerperium; Z91.041 Radiographic dye allergy status; Z91.013 Allergy to seafood
CPT/HCPCS: 85025; 86850; 86900; 86901

== ENCOUNTER → 2022-08-26 | Outpatient (CLI) | payer BC ==
[2022-08-26 18:21] LABS: HCT 41.5 % (37.2-46.3); HGB 13.7 g/dL (12.0-15.0); MCH 30.4 pg (27.0-32.0); MCV 92.2 fL (80.0-97.0); Mean Platelet Volume 9.5 fL (9.5-12.2); NRBC Per 100 WBC 0 /100 WBCS (0.0-0.0); Platelet Count 360 X 10*3/uL (140-440); RDW 12.1 % (11.5-14.5); WBC 9.79 X 10*3/uL (4.50-10.00)
[2022-08-26 19:39] LABS: Thyroid Peroxidase Antibodies 13.4 U/mL (0.0-33.0)
[2022-08-26 19:55] LABS: African American GFR (CKD) 84.9 (60.0-200.0); Albumin 4.6 g/dL (3.8-4.9); Albumin/Globulin Ratio 1.68 (1.60-3.17); Anion Gap 12.2 mmol/L (10.00-18.00); BUN/Creat Ratio 11.45 Ratio (12.00-20.00); Blood Urea Nitrogen 11.4 mg/dL (9.0-27.0); Calcium 9.9 mg/dL (8.7-10.3); Carbon Dioxide 24.1 mmol/L (20.0-27.5); Globulin 2.8 g/dL (1.6-3.3); Non-African American GFR(CKD) 73.3 (60.0-200.0); Potassium 4.7 mmol/L (3.5-5.5); Prolactin 5.8 ng/mL (2.800-29.200); Total Bilirubin 0.5 mg/dL (0.30-1.20); Total Protein 7.4 g/dL (6.2-8.2)
[2022-08-27 06:33] LABS: ACTH 9.53 pg/mL (0.00-45.99)
== END | disposition home or self-care (01) ==
LOC: LABWHC1 14:09
PROVIDERS: ATTEND Internal Medicine Endocrinology, Diabetes & Metabolism
DX: R53.83 Other fatigue (principal)
CPT/HCPCS: 36415; 80053; 82024; 82533; 82607; 84146; 84305; 84480; 85027; 86376

== ENCOUNTER → 2022-11-20 | Outpatient (CLI) | payer BC ==
--- NOTE | 2022-11-20 15:48 | US ---
EXAMINATION TYPE: US groin RT DATE OF EXAM: 11/20/2022 COMPARISON: NONE CLINICAL INDICATION: Female, 37 years old with history of R19.09 RT GROIN NODULE; Palpable area in ri ght groin. Patient states she has had a right groin nodule x 4 years. FINDINGS/IMPRESSION: Scanned right groin at patient's palpable area of concern. Indistinct, isoechoic area was seen at patient's area of concern blends in with the surrounding tissu e. Area just slightly stood out while scanning over lump. Area measured 2.0 x 1.8 x 0.6 cm. No internal review and audit compliance al color flow identified. This is favored to represent a benign process such as a lipoma.
== END | disposition home or self-care (01) ==
LOC: RADUSWWP 15:10
PROVIDERS: ATTEND Family Medicine
DX: R19.09 Other intra-abdominal and pelvic swelling, mass and lump (principal)